=== PATIENT | male | born 1970 | race Caucasian/White ===

== ENCOUNTER 2023-06-21 12:40 | Inpatient (IN) | payer BC ==
[~2023-06-21] VITALS: Ht 165.1 cm; Wt 72.6 kg
[2023-06-21 12:44] VITALS: BP_SYST 141; PULSE 87; RESP 18; TEMP 98.3; O2SAT 100
[2023-06-21 14:06] LABS: CALCIUM 9.1 mg/dL (8.4-11.0); CREATININE 1.64 mg/dL (0.55-1.30); POTASSIUM 4.5 mmol/L (3.5-5.1)
[2023-06-21] MEDS ORDERED: AMLO10TA88 PO (15:09)
[2023-06-21] MEDS ORDERED: GLIP5TAB23 PO (15:09)
[2023-06-21] MEDS ORDERED: ATOR20TA64 PO (15:09)
[2023-06-21] MEDS ORDERED: METF-1069 PO (15:09)
[2023-06-21] MEDS ORDERED: LOSA1TAB43 PO (15:09)
[2023-06-21 15:40] LABS: BILIRUBIN,URINE NEGATIVE (NEGATIVE); BLOOD, URINE NEGATIVE (NEGATIVE); CLARITY/URINE CLEAR (CLEAR); COLOR,URINE YELLOW (YELLOW); GLUCOSE,URINE NEGATIVE (NEGATIVE); KETONES,URINE NEGATIVE (NEGATIVE); LEUKOCYTE ESTERASE ,URINE NEGATIVE (NEGATIVE); NITRITE, URINE NEGATIVE (NEGATIVE); PROTEIN URINE NEGATIVE (NEGATIVE); UROBILINOGEN,URINE 0.2 (0.2-1.0)
[2023-06-21 16:00] VITALS: BP_SYST 142; PULSE 84; RESP 16; TEMP 98.4; O2SAT 99
[2023-06-21] MEDS: ASPIRIN 325 MG TABLET (ECOTRIN) PO ONE (16:11)
[2023-06-21 20:01] VITALS: O2SAT 100
[2023-06-22 00:18] VITALS: BP_SYST 123; PULSE 56; RESP 16; TEMP 97; O2SAT 98
[2023-06-22 08:15] VITALS: BP_SYST 135; PULSE 60; RESP 18; TEMP 97.7; O2SAT 99
[2023-06-22] MEDS ORDERED: ACETAMINOPHEN 325 MG TABLET PO PRN (11:15)
[2023-06-22] MEDS ORDERED: ONDANSETRON HCL 4 MG/2 ML VIAL IVP PRN (11:15)
[2023-06-22] MEDS ORDERED: NALOXONE HCL 0.4 MG/ML AMP (NARCAN) IVP PRN ×2 (11:15)
[2023-06-22] MEDS ORDERED: HYDROcodone/ACETAMIN 10-325 MG TAB PO PRN (11:15)
[2023-06-22] MEDS ORDERED: HYDROcodone/ACETAMIN 5-325 MG TAB (NORCO/ VICODIN) PO PRN (11:15)
[2023-06-22] MEDS ORDERED: LORazepam 2 MG/ML VIAL IVP PRN (11:15)
[2023-06-22] MEDS ORDERED: NON-FORMULARY MEDICATION (Losartan/Hctz* (Losartan-Hctz 100-12.5 Mg Tab*) 1 TAB) PO SCH (11:15)
[2023-06-22 11:32] LABS: BASOPHILS # (AUTO) 0.1 K/uL (0.0-0.2); BASOPHILS % (AUTO) 0.6 % (0.0-2.0); EOSINOPHILS # (AUTO) 0.1 K/uL (0.0-0.4); EOSINOPHILS % (AUTO) 0.7 % (0.0-4.0); HEMATOCRIT 36.2 % (36-54); HEMOGLOBIN 12.8 g/dL (14.0-18.0); LYMPHOCYTES # (AUTO) 1.5 K/uL (1.0-5.5); LYMPHOCYTES % (AUTO) 18.2 % (20.5-51.5); MEAN CORPUSCULAR HEMOGLOBIN 30 pg (27-31); MEAN CORPUSCULAR HGB CONC 35 % (32-36); MEAN CORPUSCULAR VOLUME 85 fL (79.0-98.0); MONOCYTES # (AUTO) 0.5 K/uL (0.0-1.0); MONOCYTES % (AUTO) 5.4 % (1.7-9.3); NEUTROPHILS # (AUTO) 6.3 K/uL (1.8-7.7); NEUTROPHILS % (AUTO) 75.1 % (40.0-70.0); PLATELET COUNT (AUTO) 287 K/uL (130-430); RED BLOOD CELL COUNT(AUTO) 4.27 MIL/uL (4.2-6.2); RED CELL DISTRIBUTION WIDTH 12.9 % (9.0-15.0); WHITE BLOOD COUNT (AUTO) 8.5 K/uL (4.8-10.8)
[2023-06-22 11:53] LABS: HEMOGLOBIN A1C 5.9 % (<5.7)
[2023-06-22 11:54] LABS: CALCIUM 9.5 mg/dL (8.4-11.0); CREATININE 1.29 mg/dL (0.55-1.30); POTASSIUM 4.5 mmol/L (3.5-5.1)
[2023-06-22] MEDS: ATORVASTATIN 20 MG TABLET PO ONE (12:03)
[2023-06-22] MEDS: amLODIPine BESYLATE 10 MG TABLET PO ONE (12:04)
[2023-06-22] MEDS: INSULIN REGULAR, HUMAN 100 UNITS/ML, 3 ML VIAL (humuLIN R) SUBCUT PRN (12:08)
[2023-06-22 12:30] VITALS: BP_SYST 132; PULSE 70; RESP 18; TEMP 97.9; O2SAT 99
[2023-06-22] MEDS: NORMAL SALINE 5 ML DISP.SYRIN IVF SCH (16:14)
[2023-06-22 16:30] VITALS: BP_SYST 128; PULSE 68; RESP 20; TEMP 97.4; O2SAT 100
[2023-06-22] MEDS: ACETAMINOPHEN 325 MG TABLET PO PRN (19:55)
[2023-06-22 20:01] VITALS: BP_SYST 135; PULSE 65; RESP 18; TEMP 97.8; O2SAT 99
[2023-06-23 00:40] VITALS: BP_SYST 131; PULSE 72; RESP 18; TEMP 97.5
[2023-06-23 05:01] LABS: BASOPHILS # (AUTO) 0.1 K/uL (0.0-0.2); BASOPHILS % (AUTO) 0.6 % (0.0-2.0); EOSINOPHILS # (AUTO) 0.3 K/uL (0.0-0.4); EOSINOPHILS % (AUTO) 2.6 % (0.0-4.0); HEMATOCRIT 35.2 % (36-54); HEMOGLOBIN 12.4 g/dL (14.0-18.0); LYMPHOCYTES # (AUTO) 3.3 K/uL (1.0-5.5); LYMPHOCYTES % (AUTO) 28.1 % (20.5-51.5); MEAN CORPUSCULAR HEMOGLOBIN 30 pg (27-31); MEAN CORPUSCULAR HGB CONC 35 % (32-36); MEAN CORPUSCULAR VOLUME 84 fL (79.0-98.0); MONOCYTES # (AUTO) 0.9 K/uL (0.0-1.0); MONOCYTES % (AUTO) 7.8 % (1.7-9.3); NEUTROPHILS # (AUTO) 7.1 K/uL (1.8-7.7); NEUTROPHILS % (AUTO) 60.9 % (40.0-70.0); PLATELET COUNT (AUTO) 285 K/uL (130-430); RED BLOOD CELL COUNT(AUTO) 4.17 MIL/uL (4.2-6.2); RED CELL DISTRIBUTION WIDTH 13.1 % (9.0-15.0); WHITE BLOOD COUNT (AUTO) 11.6 K/uL (4.8-10.8)
[2023-06-23 05:27] LABS: ALBUMIN 3.6 g/dL (3.4-4.8); CALCIUM 9.2 mg/dL (8.4-11.0); CREATININE 1.38 mg/dL (0.55-1.30); PHOSPHORUS 3.6 mg/dL (2.7-4.5); POTASSIUM 4.1 mmol/L (3.5-5.1); TOTAL BILIRUBIN 0.9 mg/dL (0.0-1.0); TOTAL PROTEIN, SERUM 7.6 g/dL (6.4-8.3)
[2023-06-23 07:49] VITALS: BP_SYST 146; PULSE 64; RESP 18; TEMP 97.8; O2SAT 99
[2023-06-23] MEDS: LOSARTAN POTASSIUM 50 MG TABLET (COZAAR) PO SCH (08:33)
[2023-06-23] MEDS: ATORVASTATIN 20 MG TABLET PO SCH (08:34)
[2023-06-23] MEDS: amLODIPine BESYLATE 10 MG TABLET PO SCH (08:35)
[2023-06-23] MEDS: HYDROCHLOROTHIAZIDE 12.5 MG CAPSULE (HCTZ) PO SCH (08:36)
[2023-06-23 10:42] VITALS: BP_SYST 125; PULSE 60; RESP 16; TEMP 97.5; O2SAT 100
== END 2023-06-23 14:30 | disposition home or self-care (01) | DRG 93 ==
LOC: SED 12:40 → STU 14:51
PROVIDERS: ADMIT Preventive Medicine Preventive Medicine/Occupational Environmental Medicine; ATTEND Preventive Medicine Preventive Medicine/Occupational Environmental Medicine
DX: R20.2 Paresthesia of skin (principal); E11.9 Type 2 diabetes mellitus without complications; I10 Essential (primary) hypertension; D64.9 Anemia, unspecified; D72.829 Elevated white blood cell count, unspecified; Z88.0 Allergy status to penicillin; Z90.49 Acquired absence of other specified parts of digestive tract
CPT/HCPCS: 36415; 70450-TC; 70551; 80048; 80053; 80061; 81001; 81003; 82948; 83037; 83735; 84100; 84443; 85025; 93306; 97116-GP; 97163-GP; 99285; G0378; J1815